=== PATIENT | female | born 1990 ===

== ENCOUNTER 2017-05-22 03:48 | Emergency (ER) | payer BC, OTHER ==
[2017-05-22 03:57] VITALS: BP 124/74; PULSE 65; RESP 18; TEMP 98.1; O2SAT 99
[2017-05-22] MEDS ORDERED: Oxycodone/Acetaminophen 5/325 mg Tab PO ONE (04:15)
--- NOTE | 2017-05-22 04:18 | ED PDOC ---
HPI: Back Time Seen by Provider: 05/22/17 03:54 Chief Complaint (Nursing): ENT Problem Chief Complaint (Provider): neck pain History Per: Patient History/Exam Limitations: no limitations Onset/Duration Of Symptoms: Days (3 weeks) Current Symptoms Are (Timing): Still Present Quality Of Discomfort: "Pain" Exacerbating Factor(s): Turning, Movement Additional History Per: Patient Additional Complaint(s): 26 y/o female presents for eval of neck pain x 3 weeks. Patient states she was seen by a Chiropractor and told she has a "stiff neck" and told to take motrin. Patient states yesterday after work symptoms became worse, waking patient from sleep this am. Pain worse with movement of head. Denies headache, known trauma, numbness/weakness upper extremities. Little relief with ibuprofen 800mg taken 3:00. Past Medical History Reviewed: Historical Data, Nursing Documentation, Vital Signs Vital Signs: Last Vital Signs Temp 98.1 F 05/22/17 03:55 Pulse 65 05/22/17 03:55 Resp 18 05/22/17 03:55 BP 124/74 05/22/17 03:55 Pulse Ox 99 05/22/17 03:55 - Medical History PMH: No Chronic Diseases - Surgical History Surgical History: No Surg Hx - Family History Family History: States: Unknown Family Hx - Home Medications Home Medications: Ambulatory Orders Medication Instructions Recorded Cyclobenzaprine [Cyclobenzaprine 10 mg PO BID PRN #10 tab 05/22/17 HCl] traMADol [Ultram] 50 mg PO Q8 PRN #10 tab 05/22/17 - Allergies Allergies/Adverse Reactions: Allergies Allergy/AdvReac Type Severity Reaction Status Date / Time No Known Allergies Allergy Verified 05/22/17 03:57 Review of Systems ROS Statement: Except As Marked, All Systems Reviewed And Found Negative Musculoskeletal: Positive for: Neck Pain Physical Exam - Reviewed Nursing Documentation Reviewed: Yes Vital Signs Reviewed: Yes - Physical Exam Appears: Positive for: Well, Non-toxic, Uncomfortable Head Exam: Positive for: ATRAUMATIC, NORMAL INSPECTION, NORMOCEPHALIC Skin: Positive for: Normal Color Eye Exam: Positive for: Normal appearance ENT: Positive for: Normal ENT Inspection Neck: Positive for: Limited ROM (limited ROM due to pain left side of neck with rotation, extension, head tilt) Cardiovascular/Chest: Positive for: Regular Rate, Rhythm Respiratory: Positive for: Normal Breath Sounds Gastrointestinal/Abdominal: Positive for: Normal Exam Back: Positive for: Normal Inspection Extremity: Positive for: Normal ROM Neurologic/Psych: Positive for: Alert, Oriented - ECG O2 Sat by Pulse Oximetry: 99 - Progress ED Course And Treament: flexeril PO, tramadol PO, xray Patient educated on findings, discharged with rx flexeril, tramadol. Patient educated on risk of narcotic abuse/dependence/overdose; advised to take as needed for severe pain only. Advised ibuprofen Q6. Follow up PMD 2-3 days. Return to ED for worsening/concerning symptoms. Disposition - Clinical Impression Clinical Impression: Neck pain on left side - Patient ED Disposition Is Patient to be Admitted: No Counseled Patient/Family Regarding: Studies Performed, Diagnosis, Need For Followup, Rx Given - Disposition Disposition: Routine/Home Disposition Time: 05:51 Condition: IMPROVED Additional Instructions: Follow up with primary doctor in 2-3 days. Take medications as directed. Return to ED for worsening/concerning symptoms. Prescriptions: Cyclobenzaprine [Cyclobenzaprine HCl] 10 mg PO BID PRN #10 tab PRN Reason: Muscle Spasm traMADol [Ultram] 50 mg PO Q8 PRN #10 tab PRN Reason: Pain, Moderate (4-7) Instructions: Muscle Strain (ED)
[2017-05-22] MEDS ORDERED: Oxycodone/Acetaminophen 5/325 mg Tab ONE (04:31)
--- NOTE | 2017-05-22 12:42 | RAD ---
PROCEDURE: Cervical Spine Radiographs. HISTORY: Pain. COMPARISON: None. FINDINGS: BONES: Vertebral bodies maintained in height. Straightening of normal lordotic curvature indicates possible muscular spasm. Normal alignment maintained. Atlantoaxial articulation suboptimally evaluated. Odontoid process appears intact. DISC SPACES: Normal. SOFT TISSUES: Normal. No prevertebral soft tissue swelling. OTHER FINDINGS: None. IMPRESSION: Possible muscular spasm. Otherwise unremarkable.
== END 2017-05-22 06:23 | disposition home or self-care (01) ==
LOC: H.ER 03:48
DX: M54.2 Cervicalgia (principal)